=== PATIENT | female | born 1945 | race Caucasian/White ===

== ENCOUNTER → 2017-03-26 | Outpatient (REF) | payer MEDICARE ==
[~2017-03-26] MED LIST: ACET65TA OR; ASPI325T OR; NEUR100C PO; NYSTPOW4 TOP; PROT20TA11 PO; SIMV80TA PO; TEGR200T PO; VENL75TA2 PO
== END ==
LOC: M LAB REF 16:10
PROVIDERS: ATTEND Nurse Practitioner Adult Health
DX: R56.9 Unspecified convulsions (principal)

== ENCOUNTER 2017-05-30 20:57 | Emergency (ER) | payer MEDICARE ==
[~2017-05-30] VITALS: Ht 160 cm; Wt 64.5 kg
[2017-05-30 20:57] VITALS: BP 140/86
[2017-05-30] MEDS ORDERED: TEGR200T PO (21:12)
[2017-05-30] MEDS ORDERED: OMEP40CA2 PO (21:12)
[2017-05-30 23:05] LABS: BASO % 0.4 % (0.0-1.0); EOS # 0.1 K/mm3 (0.0-0.50); EOS % 1.7 % (0.0-3.0); LARGE UNSTAINED CELL # 0.1 K/mm3 (0.0-0.4); LARGE UNSTAINED CELL % 1.8 % (0.0-4.0); LYMPH # 0.9 K/mm3 (1.5-4.5); LYMPH % 14.7 % (24.0-44.0); MEAN CORPUSCULAR HEMOGLOBIN 33.7 pg (27.0-33.0); MEAN CORPUSCULAR HGB CONC 34.1 g/dl (32.0-36.5); MEAN CORPUSCULAR VOLUME 98.8 fl (80.0-96.0); MONO # 0.3 K/mm3 (0.0-0.8); MONO % 5.8 % (0.0-5.0); NEUTROPHILS # 4.4 K/mm3 (1.8-7.7); NEUTROPHILS % 75.7 % (36.0-66.0); PLATELET COUNT, AUTOMATED 252 k/mm3 (150-450); WHITE BLOOD COUNT 5.8 K/mm3 (4.0-10.0)
[2017-05-30 23:39] LABS: ANION GAP 7 MEQ/L (8-16); BLOOD UREA NITROGEN 11 MG/DL (7-18); CALCIUM LEVEL 8.6 MG/DL (8.8-10.2); CARBON DIOXIDE LEVEL 27 MEQ/L (21-32); CHLORIDE LEVEL 107 MEQ/L (98-107); CREATININE FOR GFR 0.79 MG/DL (0.55-1.02); GLOMERULAR FILTRATION RATE > 60.0 (>39); GLUCOSE, FASTING 102 MG/DL (83-110); POTASSIUM SERUM 4.3 MEQ/L (3.5-5.1); SODIUM LEVEL 141 MEQ/L (136-145)
--- NOTE | 2017-05-31 01:20 | REPUSA ---
CLINICAL HISTORY: Neck pain. TECHNIQUE: Multiple axial images were obtained through the cervical spine. Images were also reconstru cted in coronal and sagittal planes. The study was performed without IV contrast. COMMENTS: There is no fracture visualized. The paraspinal soft tissues are unremarkable. There are no lytic or blastic lesions. Grade one anterolisthesis of C3 on C4 and C4 and C5. Straightening of cervical lordosis is seen, suggesting muscular spasm. There is evidence of moderate multilevel disk disease, demonstrated by osteophytosis and endplate sclerosis. IMPRESSION: 1. No fracture. 2. Straightening of cervical lordosis is seen, suggesting muscular spasm. 3. Multilevel spondylosis. Thank you for your kind referral of this patient.
[2017-05-31] MEDS ORDERED: CYCL5TAB PO (01:29)
[2017-05-31] MEDS ORDERED: MOBI4TAB PO (01:31)
--- NOTE | 2017-05-31 07:20 | ECGEPIP ---
Stationary ECG Study [facility] - ED Test Date: 2017-05-30 Pat Name: CURLY MANNING Department: Room: - Gender: F [employer]ace [employer]: yanni : 1945 Requested By: URSULA HERNÁNDEZ PA-C Order Number: [id number] Reading MD: Tera Adam Measurements Intervals [place] Rate: 73 P: 56 DE: 184 QRS: -12 QRSD: 72 T: 49 QT: 371 QTc: 411 Interpretive Statements SINUS RHYTHM INFERIOR MYOCARDIAL INFARCTION, PROBABLY OLD NSTTW ABNORMALITIES SIMILAR TO 06/06/12 Electronically Signed On 05-31-2017 7:20:06 EDT by Tera Adam
--- NOTE | 2017-05-31 07:40 | REP ---
Cervical spine four views AP and lateral projections: Comparison is 05/01/2010. Vertebral body heights and alignment are normal. There is advanced degenerative disc disease with disc space narrowing and large bridging osteophytes anteriorly at C 04/05, 02/22 and 03/26. This is unchanged. The facets are normally aligned. Prevertebral soft tissues are normal. The odontoid view is unremarkable. Impression: Multilevel advanced degenerative disc disease. No fracture or listhesis. Signed by Royer Morales MD 05/31/2017 07:32 A
== END 2017-05-31 02:10 | disposition home or self-care (01) ==
LOC: M ED 20:57
DX: M54.12 Radiculopathy, cervical region (principal); M47.812 Spondylosis without myelopathy or radiculopathy, cervical region; E78.5 Hyperlipidemia, unspecified; K21.9 Gastro-esophageal reflux disease without esophagitis; R56.9 Unspecified convulsions; F32.9 Major depressive disorder, single episode, unspecified; L40.9 Psoriasis, unspecified; Z82.49 Family history of ischemic heart disease and other diseases of the circulatory system; Z79.899 Other long term (current) drug therapy

== ENCOUNTER → 2018-03-10 | Outpatient (REF) | payer MEDICARE ==
[2018-03-11 12:56] LABS: CARBAMAZEPINE (TEGRETOL) LEVEL 4.1 UG/ML (4.0-10.0)
== END ==
LOC: M LAB REF 12:02
DX: R56.9 Unspecified convulsions (principal)
CPT/HCPCS: 80156

== ENCOUNTER → 2018-03-22 | Outpatient (CLI) | payer MEDICARE | LOC: M WUC 09:17 | DX: R05 Cough (principal); R50.9 Fever, unspecified | CPT/HCPCS: 71046 ==

== ENCOUNTER → 2018-08-07 | Outpatient (CLI) | payer MEDICARE | LOC: M WHC 14:21 | DX: Z12.31 Encounter for screening mammogram for malignant neoplasm of breast (principal) | CPT/HCPCS: 77067 ==

== ENCOUNTER → 2019-03-31 | Outpatient (REF) | payer MEDICARE ==
[~2019-03-31] MED LIST changes: +CYCL5TAB PO; +MOBI4TAB PO; +OMEP40CA2 PO
== END ==
LOC: M LAB REF 14:39
PROVIDERS: ATTEND Nurse Practitioner Adult Health
DX: R56.9 Unspecified convulsions (principal)

== ENCOUNTER → 2019-07-01 | Outpatient (REF) | payer MEDICARE | LOC: M LAB REF 16:57 | PROVIDERS: ATTEND Nurse Practitioner Adult Health | DX: R56.9 Unspecified convulsions (principal) ==

== ENCOUNTER 2020-08-08 19:46 | Emergency (ER) | payer MEDICARE ==
[~2020-08-08] VITALS: Ht 152.4 cm; Wt 67.1 kg
[2020-08-08 19:46] VITALS: BP 134/77
[~2020-08-08 19:46] MED LIST changes: -OMEP40CA2 PO; +OMEP40CA97 PO
[2020-08-08] MEDS ORDERED: METH2.5T48 PO (19:57)
[2020-08-08] MEDS ORDERED: BOOSTRIX/ADACEL VACCINE (DIPHTH/PERTUSS/ACELL/TETANUS) 0.5ML SYR IM ONE (21:30)
[2020-08-08] MEDS ORDERED: LIDOCAINE 1% MDV 20ML VIAL SC ONE (21:30)
[2020-08-08] MEDS ORDERED: DOXY100C37 PO (21:59)
[2020-08-08] MEDS ORDERED: DOXYCYCLINE HYCLATE 100MG TABLET PO ONE (22:00)
== END 2020-08-08 22:11 | disposition home or self-care (01) ==
LOC: M ED 19:46
DX: S81.852A Open bite, left lower leg, initial encounter (principal); W54.0XXA Bitten by dog, initial encounter; Y92.89 Other specified places as the place of occurrence of the external cause; Z79.899 Other long term (current) drug therapy

== ENCOUNTER → 2021-02-19 | Outpatient (CLI) | payer MEDICARE ==
[~2021-02-19] MED LIST changes: +DOXY100C37 PO; +METH2.5T48 PO
--- NOTE | 2021-02-19 15:15 | REP ---
INDICATION: PAIN COMPARISON: None. TECHNIQUE: Four views left foot. FINDINGS: There is no evidence of acute fracture, dislocation, or intrinsic bone disease.There is mild linear calcification in the distal Achilles tendon. There is an accessory ossicle of the navicular bone. There is minimal narrowing of the 1st metatarsophalangeal joint with mild subchondral sclerosis. There is minimal narrowing and subchondral sclerosis at the talonavicular joint. IMPRESSION: No fracture or dislocation. Minor degenerative changes. Mild linear calcification in the distal Achilles tendon. Os naviculare. <Electronically signed by Royer Godinez > 02/19/21 [id number]
== END ==
LOC: M WUC 13:55
PROVIDERS: ATTEND Physician Assistant
DX: M79.672 Pain in left foot (principal)

== ENCOUNTER → 2023-07-25 | Outpatient (CLI) | payer MEDICARE ==
[~2023-07-25] MED LIST changes: +DOXY-443 PO; -DOXY100C37 PO; +OMEP40CA4 PO; -OMEP40CA97 PO; +PROHANCE 279.3MG/ML 15ML VIAL ONE
== END ==
LOC: M PLAIMG 13:13
PROVIDERS: ATTEND Otolaryngology
DX: H91.93 Unspecified hearing loss, bilateral (principal)
CPT/HCPCS: 70553; A9576

== ENCOUNTER 2025-05-19 08:07 | Day surgery (SDC) | payer MEDICARE ==
[~2025-05-19] VITALS: Ht 152.4 cm; Wt 59.4 kg
[~2025-05-19 08:07] MED LIST changes: +ATOR80TA59 PO; -CYCL5TAB PO; +CYCL5TAB4 PO; +DOXY-441 PO; -DOXY-443 PO; +LIDOCAINE 2% 100 MG/5 ML SDV (FOR ANES.) As Ordered ONE; +OMEP40CA5 PO; -PROHANCE 279.3MG/ML 15ML VIAL ONE
[2025-05-19 10:25] VITALS: TEMP 96.8
[2025-05-19 10:42] VITALS: BP 140/68; O2SAT 98
== END 2025-05-19 10:51 | disposition home or self-care (01) ==
LOC: M OPP 08:07
PROVIDERS: ATTEND Surgery
DX: D12.6 Benign neoplasm of colon, unspecified (principal); K64.2 Third degree hemorrhoids; K62.89 Other specified diseases of anus and rectum; K57.30 Diverticulosis of large intestine without perforation or abscess without bleeding; K62.5 Hemorrhage of anus and rectum; K31.7 Polyp of stomach and duodenum; K29.70 Gastritis, unspecified, without bleeding; K31.89 Other diseases of stomach and duodenum; K29.80 Duodenitis without bleeding; R13.10 Dysphagia, unspecified; R12 Heartburn; Z79.899 Other long term (current) drug therapy; R56.9 Unspecified convulsions
CPT/HCPCS: 43239; 45380; 88305; J3010

== ENCOUNTER → 2025-06-24 | Outpatient (CLI) | payer MEDICARE ==
[~2025-06-24] MED LIST changes: +E-Z-GAS II EFFERVESCENT PACKET (SODIUM BICARB./CITRIC ACID/SIMETHICONE) As Ordered ONE; +E-Z-HD 98% w/w 340 GM SUSP BTL As Ordered ONE; +E-Z-PAQUE 96% w/w SUSP 176 GM BTL As Ordered ONE; -LIDOCAINE 2% 100 MG/5 ML SDV (FOR ANES.) As Ordered ONE
== END ==
LOC: M RAD 08:40
PROVIDERS: ATTEND Physician Assistant
DX: R13.10 Dysphagia, unspecified (principal); K44.9 Diaphragmatic hernia without obstruction or gangrene; Q39.4 Esophageal web